=== PATIENT | male | born 1970 | race Caucasian/White ===

== ENCOUNTER 2016-10-28 05:35 | Emergency (ER) | payer OTHER ==
[~2016-10-28] VITALS: Ht 200.7 cm; Wt 131.5 kg
--- NOTE | 2016-10-28 05:42 | ED GI/GU/ABDOMINAL COMPLAINT ---
History of Present Illness General Chief Complaint: Abdominal Pain/Flank Pain Stated Complaint: ABD PAIN Source: patient, EMS Exam Limitations: no limitations Vital Signs & Intake/Output Vital Signs & Intake/Output Vital Signs Date Time Temp Pulse Resp B/P B/P Pulse O2 O2 Flow FiO2 Mean Ox Delivery Rate 10/28 0536 99.0 87 18 125/77 96 Room Air Allergies Uncoded Allergies: ENVIRONMENTAL ALLERGIES (07/20/11) Triage Note: PT BIBA FROM WORK. PER PT HE WAS SITTING AT THIS DESK WHEN HE EXPERIENCED ACUTE 10/10 LLQ ABD PAIN. AFTER THE ONSET OF PAIN PT VOMITTED ONCE AND THE PAIN SUBSIDED THEN RETURNED. PT DENIES AND CP OR SOB. PT STATES THAT HE DID NOTICE THAT HIS URINE WAS DARKER THAN USUAL THIS MORNING. PT COMPLAINS OF HEADACHE AT THIS TIME. Triage Nurses Notes Reviewed? yes HPI: 46 year old male presents via EMS from work for sudden onset of nausea, vomiting , diaphoresis and llq pain. Initially pain radiated to back but then resolved. Noted dark brown urine earlier today. No dyusira or frequency. Current pain is 4/10 (CARLY ANGELO,GABBI) Reconcile Medications Ibuprofen 800 MG TABLET 1 TAB PO TID PRN PAIN Ondansetron (Zofran Odt) 4 MG TAB.RAPDIS 1 TAB PO Q6 PRN NAUSEA Oxycodone HCl/Acetaminophen (Percocet 5-325 MG Tablet) 5 MG-325 MG TABLET 1 TAB PO BID PRN BREAKTHROUGH PAIN Tamsulosin HCl (Flomax) 0.4 MG CAP.ER.24H 1 CAP PO DAILY KIDNEY STONE (MARLO GUPTA MD) Past History Travel History Traveled to [place] past 21 day No Medical History Any Pertinent Medical History? see below for history Neurological: NONE EENT: NONE Cardiovascular: NONE Respiratory: asthma Gastrointestinal: NONE Hepatic: NONE Renal: NONE Musculoskeletal: NONE Psychiatric: anxiety Endocrine: NONE Blood Disorders: NONE Cancer(s): NONE [employer]/Reproductive: NONE Surgical History Surgical History: non-contributory Psychosocial History What is your primary language Kosovan Tobacco Use: Never used ETOH Use: occasional use Illicit Drug Use: denies illicit drug use Family History Hx Contributory? No (CARLY ANGELO,GABBI) Review of Systems Review of Systems Constitutional: Denies: chills, malaise. EENTM: Reports: no symptoms. Respiratory: Denies: cough, short of breath. Cardiovascular: Denies: chest pain, palpitations. GI: Reports: abdominal pain, nausea, vomiting. Genitourinary: Reports: see HPI (DARK URINE). Musculoskeletal: Reports: back pain. Skin: Reports: no symptoms. Neurological/Psychological: Reports: no symptoms. Hematologic/Endocrine: Denies: bruising, bleeding, polyuria, polydipsia. Immunologic/Allergic: Reports: no symptoms. All Other Systems: Reviewed and Negative (GABBI CARROLL MD) Physical Exam Physical Exam General Appearance: well developed/nourished, alert, awake, anxious Head: atraumatic, normal appearance Eyes: Bilateral: normal appearance, PERRL, EOMI. Ears, Nose, Throat, Mouth: hearing grossly normal, moist mucous membrane Neck: normal inspection, supple, full range of motion Respiratory: normal breath sounds, chest non-tender, no respiratory distress Cardiovascular: regular rate/rhythm Peripheral Pulses: 2+ radial (R), 2+ radial (L) Gastrointestinal: tenderness (llq, suprapubic), VOLUNTARY GUARDING, HYPOACTIVE BOWELS Back: CVA tenderness (L) Extremities: normal range of motion Neurologic/Psych: no motor/sensory deficits, awake, alert, oriented x 3 Core Measures ACS in differential dx? No Severe Sepsis Present: No Septic Shock Present: No (GABBI CARROLL MD) Progress Differential Diagnosis: bowel obstruction, diverticulitis, perforated viscous, ureterolithiasis, UTI/pyelo Plan of Care: Orders Procedure Date/time Status URINALYSIS 10/28 545 Complete COMPREHENSIVE METABOLIC PANEL 10/28 545 Complete CBC WITHOUT DIFFERENTIAL 10/28 545 Complete Laboratory Tests 10/28/16 0702: Urinalysis MOD H, Urine Color RICHARD, Urine Clarity HAZY H, Urine pH 6.0, Ur Specific [place] >= 1.030, Urine Protein 100 H, Urine Ketones TRACE H, Urine Nitrite NEG, Urine Bilirubin NEG@ICTO, Urine Urobilinogen 0.2, Ur Leukocyte Esterase TRACE H, Ur Microscopic SEDIMENT EXAMINED, Urine RBC >75 H, Urine WBC 1-3 H, Urine Crystals 3+ CA OX H, Urine Bacteria MOD H, Urine Hemoglobin LARGE H, Urine Glucose NEG 10/28/16 0550: Anion Gap 14, Estimated GFR > 60, BUN/Creatinine Ratio 20.0, Glucose 120 H, Calcium 9.9, Total Bilirubin 0.7, AST 28, ALT 42, Alkaline Phosphatase 134 H, Total Protein 7.7, Albumin 4.4, Globulin 3.3, Albumin/Globulin Ratio 1.3, CBC w Diff NO MAN DIFF REQ, RBC 4.61 L, MCV 94.3 H, MCH 32.0 H, RDW 12.5, MPV 8.1, Gran % 74.4, Lymphocytes % 17.9 L, Monocytes % 6.8, Eosinophils % 0.6, Basophils % 0.3, Absolute Granulocytes 9.8 H, Absolute Lymphocytes 2.4, Absolute Monocytes 0.9 H, Absolute Eosinophils 0.1, Absolute Basophils 0, PUBS MCHC 33.9 6:59 AM PAIN FREE AFTER TORADOL IV. CT RESULTS PENDING. WILL PROVIDE URINALYSIS NOW. (CARLY ANGELO,GABBI) Diagnostic Imaging: Viewed by Me: CT Scan. Discussed w/RAD: CT Scan. Radiology Impression: PATIENT: CHAYO WOLFF PRESENT AGE: 46 PATIENT ACCOUNT NO: [id number] : 69 LOCATION: [facility] ORDERING PHYSICIAN: GABBI CARROLL MD SERVICE DATE: 10/28/16 EXAM TYPE: CAT - CT ABD & PELVIS W/O IV CONTRAS EXAMINATION: CT ABDOMEN AND PELVIS WITHOUT CONTRAST CLINICAL INFORMATION: Sudden onset left lower quadrant abdominal pain. Dark urine. COMPARISON: No relevant prior imaging. TECHNIQUE: Multidetector volumetric imaging was performed from the superior aspect of the liver through the pubic symphysis. Sagittal and coronal reformatted images were obtained on the technologist's workstation. DLP: 1434.89 mGy-cm FINDINGS: LUNG BASES: There is minimal bibasilar subsegmental atelectasis. No pleural or pericardial effusion. LIVER, GALLBLADDER, AND BILIARY TREE: The unenhanced liver attenuation is homogeneous with the exception of a a few small calcified granulomas, the largest which involves the right lower liver measuring 0.9 cm in diameter. The gallbladder is unremarkable with no evidence of radiopaque gallstones, gallbladder wall thickening, or obvious pericholecystic inflammatory changes. PANCREAS: Unremarkable. SPLEEN: A few calcified granulomas are visualized within the spleen. ADRENAL GLANDS: Unremarkable. KIDNEYS AND URETERS: There is an angular 4 mm obstructive calculus within the proximal left ureter at the ureteropelvic junction best illustrated on coronal image 57 of 119 series 602. There is associated left hydronephrosis. No additional metastatic calculi are visualized within either kidney. BLADDER: Unremarkable. GASTROINTESTINAL TRACT: The small and large bowel are unremarkable. The appendix is unremarkable. ABDOMINAL WALL: No significant hernia is appreciated. LYMPH NODES: There are a few coarsely calcified periportal lymph nodes. No pathologically enlarged mesenteric or retroperitoneal lymph nodes. VASCULAR: The unenhanced abdominal aorta and inferior vena cava are unremarkable. OSSEOUS STRUCTURES: There is no acute osseous finding. No worrisome lytic or blastic osseous lesions. IMPRESSION : There is a 4 mm obstructive calculus within the proximal left ureter at the ureteropelvic junction. No additional metastatic calculi are visualized within either kidney. DICTATED BY: ABEL SYKES MD DATE/TIME DICTATED:10/28/16655 DIRECTOR PRODUCT MANAGEMENT:TOM DATE/TIME TRANSCRIBED:10/28/16655 CONFIDENTIAL, DO NOT COPY WITHOUT APPROPRIATE AUTHORIZATION. <Electronically signed in Other Vendor System> SIGNED BY: ABEL SKYES MD 10/28/16 0711 Initial ED EKG: none Hand-Off Endorsed To: MARLO GUPTA MD Endorsed Time: 0700 Pending: other (URINALYSIS) (GABBI CARROLL MD) Departure Departure Disposition: HOME OR SELF CARE Condition: Stable Clinical Impression Primary Impression: Renal colic on left side Additional Instructions: TAKE THE FLOMAX, MOTRIN, ZOFRAN ADN PERCOCET DIRECTED. FOLLOW UP WITH THE UROLOGIST LISTED. RETURN IF WORSE. Prescriptions: Current Visit Scripts Ondansetron (Zofran Odt) 1 TAB PO Q6 PRN NAUSEA #20 TAB Ibuprofen 1 TAB PO TID PRN PAIN #20 TAB Tamsulosin HCl (Flomax) 1 CAP PO DAILY #14 CAP Oxycodone HCl/Acetaminophen (Percocet 5-325 MG Tablet) 1 TAB PO BID PRN BREAKTHROUGH PAIN #15 TAB (GABBI CARROLL MD) Departure Time of Disposition: 735 Referrals: CT ANGELO,BRISA TOBAR MD,EMANUEL Barrios (PCP/Family) Departure Forms: Customer Survey General Discharge Information RELEASE- WORK (MARLO GUPTA MD)
[2016-10-28 06:00] LABS: ABSOLUTE BASOPHIL COUNT 0 /CUMM (0.0-0.2); ABSOLUTE EOSINOPHIL COUNT 0.1 /CUMM (0.0-0.7); ABSOLUTE GRANULOCYTE CT 9.8 /CUMM (1.4-6.5); ABSOLUTE LYMPH COUNT 2.4 /CUMM (1.2-3.4); ABSOLUTE MONOCYTE COUNT 0.9 /CUMM (0.10-0.60); BASOPHIL % 0.3 % (0.0-2.0); EOSINOPHIL % 0.6 % (0-5); GRANULOCYTE % 74.4 % (42.2-75.2); HEMATOCRIT 43.5 % (42-52); MEAN CORPUSCULAR HGB CONC 33.9 G/DL (33.0-37.0); MEAN CORPUSCULAR VOLUME 94.3 FL (80.0-94.0); MEAN PLATELET VOLUME 8.1 FL (7.4-10.4); PLATELET COUNT 246 /CUMM (130-400); RBC DISTRIBUTION WIDTH 12.5 % (11.5-14.5); RED BLOOD CELL CT 4.61 /CUMM (4.70-6.10); WHITE BLOOD CELL COUNT 13.1 /CUMM (4.8-10.8)
--- NOTE | 2016-10-28 07:11 | CT SCAN REPORT ---
EXAMINATION: CT ABDOMEN AND PELVIS WITHOUT CONTRAST CLINICAL INFORMATION: Sudden onset left lower quadrant abdominal pain. Dark urine. COMPARISON: No relevant prior imaging. TECHNIQUE: Multidetector volumetric imaging was performed from the superior aspect of the liver through the pubic symphysis. Sagittal and coronal reformatted images were obtained on the technologist's workstation. DLP: 1434.89 mGy-cm FINDINGS: LUNG BASES: There is minimal bibasilar subsegmental atelectasis. No pleural or pericardial effusion. LIVER, GALLBLADDER, AND BILIARY TREE: The unenhanced liver attenuation is homogeneous with the exception of a a few small calcified granulomas, the largest which involves the right lower liver measuring 0.9 cm in diameter. The gallbladder is unremarkable with no evidence of radiopaque gallstones, gallbladder wall thickening, or obvious pericholecystic inflammatory changes. PANCREAS: Unremarkable. SPLEEN: A few calcified granulomas are visualized within the spleen. ADRENAL GLANDS: Unremarkable. KIDNEYS AND URETERS: There is an angular 4 mm obstructive calculus within the proximal left ureter at the ureteropelvic junction best illustrated on coronal image 57 of 119 series 602. There is associated left hydronephrosis. No additional metastatic calculi are visualized within either kidney. BLADDER: Unremarkable. GASTROINTESTINAL TRACT: The small and large bowel are unremarkable. The appendix is unremarkable. ABDOMINAL WALL: No significant hernia is appreciated. LYMPH NODES: There are a few coarsely calcified periportal lymph nodes. No pathologically enlarged mesenteric or retroperitoneal lymph nodes. VASCULAR: The unenhanced abdominal aorta and inferior vena cava are unremarkable. OSSEOUS STRUCTURES: There is no acute osseous finding. No worrisome lytic or blastic osseous lesions. IMPRESSION: There is a 4 mm obstructive calculus within the proximal left ureter at the ureteropelvic junction. No additional metastatic calculi are visualized within either kidney.
[2016-10-28] MEDS ORDERED: PERCOCET 5-3251 EACH PO ×2 (07:14→07:15)
[2016-10-28] MEDS ORDERED: IBUPROFEN800 M1 PO ×2 (07:14→07:15)
[2016-10-28] MEDS ORDERED: FLOMAX0.4 M1 PO ×2 (07:14→07:15)
[2016-10-28] MEDS ORDERED: ZOFRAN ODT4 M1 PO ×2 (07:14→07:15)
[2016-10-28 07:37] VITALS: BP 131/67
== END 2016-10-28 07:49 ==
LOC: ERH 05:35
PROVIDERS: Emergency Medicine
DX: N23 Unspecified renal colic (principal)
CPT/HCPCS: 74176; 81001; 96374; 96375; J1885; J2405